=== PATIENT | female | born 1980 | race Caucasian/White ===

== ENCOUNTER 2017-09-19 09:40 | Emergency (ER) | payer MEDICAID, OTHER ==
[2017-09-19] MEDS: DEXAMETHASONE 10 MG/ML 1 ML INJ PO (11:28)
[2017-09-19] MEDS: IPRATROPIUM (NEB) 0.5 MG/2.5 ML AMP NEB (11:45)
[2017-09-19] MEDS: ALBUTEROL 0.083% (NEB) 2.5 MG/3 ML AMP NEB (11:45)
== END 2017-09-19 13:25 | disposition home or self-care (01) ==
LOC: FTE 09:40
DX: J40 Bronchitis, not specified as acute or chronic (principal)
CPT/HCPCS: 71045; 94664; 99283-25